=== PATIENT | female | born 1965 | race Two or more races ===

== ENCOUNTER 2023-02-19 11:04 | Emergency (ER) | payer MEDICAID ==
[~2023-02-19] VITALS: Ht 154.9 cm; Wt 79.4 kg
[2023-02-19 11:57] VITALS: BP 138/84; PULSE 74; RESP 18; O2SAT 98
[2023-02-19 12:14] LABS: Urine Bacteria NONE SEEN /hpf (None Seen); Urine Blood 3+ /uL (Negative); Urine Clarity HAZY (Clear); Urine Color PINK (Yellow); Urine Mucus FEW (None Seen); Urine Protein, UAD 1+ (Negative); Urine Specific Gravity 1.019 (1.001-1.035); Urine Urobilinogen Normal (Negative); Urine WBC 642 /hpf (0 - 5); Urine WBC Clumps PRESENT /hpf (None Seen); Urine pH 5.5 (5.0-8.0)
[2023-02-19] MEDS ORDERED: cefTRIAXone SOD 1,000 MG VL IM ONE (12:45)
[2023-02-19] MEDS ORDERED: PHENAZOPYRIDINE HCL 100 MG TAB PO ONE (12:45)
[2023-02-19] MEDS ORDERED: PHEN-922 PO (12:53)
[2023-02-19] MEDS ORDERED: BACDST PO (12:53)
== END 2023-02-19 13:10 | disposition home or self-care (01) ==
LOC: ER 11:04
DX: N39.0 Urinary tract infection, site not specified (principal)
CPT/HCPCS: 81001; 96372; 99283; J0696

== ENCOUNTER 2024-04-19 13:22 | Emergency (ER) | payer MEDICAID ==
[~2024-04-19] VITALS: Ht 144.8 cm; Wt 88.0 kg
[~2024-04-19 13:22] MED LIST: BACDST PO; PHEN-922 PO
[2024-04-19 14:09] VITALS: BP 120/59; PULSE 90; RESP 18; TEMP 98.1; O2SAT 96
[2024-04-19] MEDS ORDERED: ACET500T58 PO (14:57)
[2024-04-19] MEDS ORDERED: PROM1SOL4 PO (14:57)
[2024-04-19] MEDS ORDERED: PSEU120T18 PO (14:57)
[2024-04-19] MEDS ORDERED: BENZ100C97 PO (14:57)
--- NOTE | 2024-04-19 14:57 | ED.PDOC ---
SOB-HPI HPI Comments Old female with a history of high blood pressure presents with a chief complaint of URI symptoms for the last seven days. Currently reports a nonproductive cough, runny nose, and a frontal headache. Symptoms rated as moderate. Was seen at Dr. Murphy three days ago and was prescribed Motrin and Augmentin in his currently on day three. Chief Complaint: Flu like Time Seen by MD: 13:59 Primary Care Provider: JESSEE Jean notes: Nurses Notes, Medications, Allergies Information Source: Patient Mode of Arrival: Ambulatory Past Medical History PAST MEDICAL HISTORY: UTI'S Surgical History: Denies all surgeries DIE REPAIR MACHINIST History: No Pertinent DIE REPAIR MACHINIST History Family History Family History: Reviewed,noncontributory to illness Social History Smoker: Non-Smoker Alcohol: Denies ETOH Use Drugs: Denies Drug Use Lives In: Home All Other Systems: Reviewed and Negative (per hpi) Physical Exam General Appearance: No Apparent Distress, Normal HEENT: Normal ENT Inspection, Pharynx Normal, TMs Normal Neck: Full Range of Motion, Non-Tender, Normal, Normal Inspection Respiratory: Chest Non-Tender, Lungs Clear, No Accessory Muscle Use, No Respiratory Distress, Normal Breath Sounds Cardiovascular: No Edema, No JVD, No Murmur, No Gallop, Normal Peripheral Pulses, Regular Rate/Rhythm Breast Exam: Deferred Gastrointestinal: No Organomegaly, Non Tender, No Pulsatile Mass, Normal Bowel Sounds, Soft Genitalia: Deferred Pelvic: Deferred Rectal: Deferred Extremities: No calf tenderness, Normal capillary refill, Normal inspection, Normal range of motion, Non-tender, No pedal edema Musculoskeletal : Apperance: Normal Neurologic: Alert, hog cutter II-XII nml as Tested, No Motor Deficits, Normal Affect, Normal Mood, No Sensory Deficits Cerebellar Function: Normal Reflexes: Normal Skin: Dry, Normal Color, Warm Lymphatic: No Adenopathy Was a procedure done? Was a procedure done?: No Differential Dx Differential Diagnosis: Bronchitis X-Ray, Labs, Meds, VS Vital Signs Date Time Temp Pulse Resp B/P (MAP) Pulse Ox O2 Delivery O2 Flow Rate FiO2 04/19/24 14:09 90 18 96 Room Air 04/19/24 14:09 98.1 90 18 120/59 (79) 96 98.1 04/19/24 13:45 98.1 90 18 120/59 (79) 96 X-Ray, Labs, Meds, VS Comment The patient is overall well-appearing nontoxic on exam. On physical exam, respirations even and unlabored, clear to auscultation bilaterally. Oxygen stable on room air. Did not have any focal lung findings and therefore chest x-ray was not indicated during this exam Low suspicion of strep pharyngitis given physical exam findings and patient's presenting symptoms No signs of meningismus on exam Overall, the patient is well hydrated and nontoxic. Plan for symptomatic control for fever and pain as needed. The patient was able to tolerate p.o. intake in the ED. at this time, patient is safe for discharge home. The exam findings and plan discussed. We will discharge home with PCP follow up and strict return precautions. Discussed that cough can linger up to 6 weeks after viral URI Supportive care and return precautions discussed Counseled viral infection and explained that antibiotics would not be helpful in resolving the illness sooner. Recommended vitamin C, rest, handwashing, and symptomatic care. Expect 2-week course with possibly of cough lingering up to 6 weeks. Nonpharmacological remedies for fluids has been recommended as well Time of 1ST Reevaluation: 14:54 Reevaluation 1ST: Improved Patient Education/Counseling: Diagnosis, Treatment Family Education/Counseling: Diagnosis, Treatment Departure 1 Departure Time of Disposition: 14:55 Impression: Primary Impression: Acute bronchitis Qualified Codes: J20.9 - Acute bronchitis, unspecified Disposition: 01 HOME / SELF CARE / HOMELESS Condition: Stable e-Prescriptions Acetaminophen (Acetaminophen) 500 Mg Tab 500 MG PO Q6HP PRN for 10 Days, #40 TAB 0 Refills Prov: YG ROMERO METAL ROLLING MILL OPERATOR 04/19/24 Pseudoephedrine-Guaifenesin (Mucinex D) 1 Tab Tab 1 TAB PO BID for 10 Days, #20 TAB 0 Refills Prov: YG ROMERO METAL ROLLING MILL OPERATOR 04/19/24 Promethazine-Dm (Promethazine Dm 6.25-15 mg/5Ml) 1 Bárbara Bárbara 5 ML PO TID for 10 Days, #150 ML 0 Refills Prov: YG ROMERO METAL ROLLING MILL OPERATOR 04/19/24 Benzonatate (Benzonatate) 100 Mg Cap 1 CAP PO TID for 10 Days, #30 CAP 0 Refills Prov: YG ROMERO METAL ROLLING MILL OPERATOR 04/19/24 Critical Care Note Critical Care Time?: No Stability Stability form required: No Heart Score Heart Score: Heart Score Response (Comments) Value History N/A 0 EKG N/A 0 Age N/A 0 Risk Factors N/A 0 Troponin N/A 0 Total 0 YG ROMERO NP Apr 19, 2024 14:57
[2024-04-19] MEDS: methylPREDNISolone SOD SUCC 125 MG/2 ML VL IM ONE (15:08)
== END 2024-04-19 14:57 | disposition home or self-care (01) ==
LOC: ER 13:22
DX: J20.9 Acute bronchitis, unspecified (principal)
CPT/HCPCS: 96372; 99283; J2919

== ENCOUNTER 2024-06-14 10:51 | Emergency (ER) | payer MEDICAID ==
[~2024-06-14] VITALS: Ht 157.5 cm; Wt 82.2 kg
[~2024-06-14 10:51] MED LIST changes: +ACET500T58 PO; +BENZ100C97 PO; +PROM1SOL4 PO; +PSEU120T18 PO
[2024-06-14 11:54] VITALS: BP 126/74; PULSE 104; RESP 16; TEMP 98.5; O2SAT 96
--- NOTE | 2024-06-14 12:24 | ED.PDOC ---
Musculoskeletal HPI Comments This 58-year-old male presents with a chief complaint of atraumatic right inguinal pain and pain to the lateral thigh x2 weeks. Onset was sudden has been persistent since. Symptoms are aggravated with lying on the affected side in his unable to get adequate relief with [id number] medications. Pain rated as moderate Chief Complaint: Lower Extremity Time Seen by MD: 11:41 Primary Care Provider: unknown Reviewed Notes: Nurses Notes, Medications, Allergies Allergies: Coded Allergies: NO KNOWN ALLERGIES (Unverified , 02/19/23) Home Meds Active Scripts Promethazine-Dm (Promethazine Dm 6.25-15 mg/5Ml) 1 Bárbara Bárbara, 5 ML PO TID for 10 Days, #150 ML 0 Refills Prov:HEATHERDELONTE CELISO Delfina CAR SALES ASSOCIATE 06/14/24 Pseudoephedrine-Guaifenesin (Mucinex D) 1 Tab Tab, 1 TAB PO BID for 10 Days, #20 TAB 0 Refills Prov:HEATHERYG Delfina CAR SALES ASSOCIATE 06/14/24 Benzonatate (Benzonatate) 100 Mg Cap, 1 CAP PO TID for 10 Days, #30 CAP 0 Refills Prov:HEATHERYG CELIS CAR SALES ASSOCIATE 06/14/24 Ibuprofen Micronized (Ibuprofen) 800 Mg Tab, 800 MG PO Q8HP PRN for 10 Days, #30 TAB 0 Refills Prov:HEATHERYG CELIS CAR SALES ASSOCIATE 06/14/24 Methocarbamol (Methocarbamol) 500 Mg Tab, 500 MG PO Q8HP PRN for 7 Days, #21 TAB 0 Refills Prov:HEATHERYG Mathis CAR SALES ASSOCIATE 06/14/24 Acetaminophen (Acetaminophen) 500 Mg Tab, 500 MG PO Q6HP PRN for 10 Days, #40 TAB 0 Refills Prov:HEATHERYG Mathis CAR SALES ASSOCIATE 04/19/24 Pseudoephedrine-Guaifenesin (Mucinex D) 1 Tab Tab, 1 TAB PO BID for 10 Days, #20 TAB 0 Refills Prov:HEATHERDELONTE CELISO Delfina CAR SALES ASSOCIATE 04/19/24 Promethazine-Dm (Promethazine Dm 6.25-15 mg/5Ml) 1 Bárbara Bárbara, 5 ML PO TID for 10 Days, #150 ML 0 Refills Prov:YG ROMERO Delfina CAR SALES ASSOCIATE 04/19/24 Benzonatate (Benzonatate) 100 Mg Cap, 1 CAP PO TID for 10 Days, #30 CAP 0 Refills Prov:YG ROMERO DEVYN 04/19/24 Phenazopyridine HCl (Phenazopyridine Hydrochlo) 200 Mg Tab, 200 MG PO TID, #6 TAB Prov:JONES ROCKWELL 02/19/23 Sulfamethoxazole W/Trimethopri (Bactrim Ds Tablet) 1 Tab Tb, 1 TAB PO BID for 10 Days, #20 TAB Prov:JONES ROCKWELL 02/19/23 Information Source: Patient Mode of Arrival: Ambulatory Past Medical History PAST MEDICAL HISTORY: UTI'S Surgical History: Denies all surgeries WELDING INSTRUCTOR History: No Pertinent WELDING INSTRUCTOR History Family History Family History: Reviewed,noncontributory to illness Social History Smoker: Non-Smoker Alcohol: Denies ETOH Use Drugs: Denies Drug Use Lives In: Home All Other Systems: Reviewed and Negative (per hpi) Physical Exam General Appearance: No Apparent Distress, Normal HEENT: Normal ENT Inspection, Pharynx Normal, TMs Normal Neck: Full Range of Motion, Non-Tender, Normal, Normal Inspection Respiratory: Chest Non-Tender, Lungs Clear, No Accessory Muscle Use, No Respiratory Distress, Normal Breath Sounds Cardiovascular: No Edema, No JVD, No Murmur, No Gallop, Normal Peripheral Pulses, Regular Rate/Rhythm Breast Exam: Deferred Gastrointestinal: No Organomegaly, Non Tender, No Pulsatile Mass, Normal Bowel Sounds, Soft Genitalia: Deferred Pelvic: Deferred Rectal: Deferred Extremities: No calf tenderness, Normal capillary refill, Normal inspection, Normal range of motion, Non-tender, No pedal edema Musculoskeletal : Apperance: Normal Neurologic: Alert, curtain worker II-XII nml as Tested, No Motor Deficits, Normal Affect, Normal Mood, No Sensory Deficits Cerebellar Function: Normal Reflexes: Normal Skin: Dry, Normal Color, Warm Lymphatic: No Adenopathy Was a procedure done? Was a procedure done?: No Differential Diagnosis EXT Differential Diagnosis: Sprain X-Ray, Labs, Meds, VS Vital Signs Date Time Temp Pulse Resp B/P (MAP) Pulse Ox O2 Delivery O2 Flow Rate FiO2 06/14/24 11:54 104 16 96 Room Air 06/14/24 11:54 98.5 101 16 126/74 (91) 96 98.5 06/14/24 11:26 98.5 104 16 126/74 (91) 96 Lab Test 06/14/24 12:05 Range/Units Urine Color Yellow Yellow Urine Clarity Clear Clear Urine pH 5.5 5.0-9.0 Urine Specific [place] 1.022 1.001-1.035 Urine Protein Negative Negative Urine Ketones Negative Negative Urine Blood 1+ H Negative /uL Urine Nitrite Negative Negative Urine Bilirubin Negative Negative Urine Urobilinogen Normal Negative mg/dL Urine Leukocyte Esterase Negative Negative /uL Urine RBC 1 0 - 4 /hpf Urine Microscopic WBC 1 0-5 /HPF Urine Squamous Epithelial Cells Few <5 /hpf Urine Bacteria None seen None Seen /hpf Urine Mucus Few None Seen Urine Glucose Normal Normal mg/dL Current Medications Medications (Trade) Dose Ordered Sig/[place] Route Start Time Stop Time Status Last Admin Ketorolac Tromethamine (Toradol Injection) 60 mg ONCE ONCE IM 06/14/24 13:00 06/14/24 13:01 DC 06/14/24 12:59 X-Ray, Labs, Meds, VS Comment After ROS physical examination no red flags. Findings consistent with musculoskeletal injury. Medications were prescribed for symptomatic treatment Advised to stretch as tolerated. Warm compresses as needed Patient is stable for discharge at this time. External notes reviewed. Test results and diagnostic imaging interpreted. All diagnostic findings, discharge care, education and instructions provided Follow-up with PCP in 2 to 3 days Patient verbalized understanding and agreed to treatment plan Vital signs stable, afebrile, no acute distress noted Patient ambulatory with strong steady gait Advised to return precautions for any new or worsening symptoms, return to ER immediately for re-evaluation Patient is aware that the purpose of this visit was for an acute medical emergency requiring emergent stabilization. Chronic conditions, including malignancies have not been ruled out. Patient is instructed to follow up with PCP as directed and discharge instructions for continued care and workup. If unable to arrange follow-up, patient is to return to the emergency department for reassessment. Patient (parent or legal guardian if applicable) was given verbal and written discharge instructions and acknowledges understanding. Time of 1ST Reevaluation: 12:45 Reevaluation 1ST: Improved Patient Education/Counseling: Diagnosis, Treatment Family Education/Counseling: Diagnosis, Treatment Departure 1 Departure Time of Disposition: 12:56 Impression: Primary Impression: IT band syndrome Qualified Codes: M76.31 - Iliotibial band syndrome, right leg Additional Impressions: Rt inguinal pain Cough Qualified Codes: R05.1 - Acute cough Disposition: 01 HOME / SELF CARE / HOMELESS Condition: Fair e-Prescriptions Promethazine-Dm (Promethazine Dm 6.25-15 mg/5Ml) 1 Bárbara Bárbara 5 ML PO TID for 10 Days, #150 ML 0 Refills Prov: YG ROMERO NP 06/14/24 Pseudoephedrine-Guaifenesin (Mucinex D) 1 Tab Tab 1 TAB PO BID for 10 Days, #20 TAB 0 Refills Prov: YG ROMERO NP 06/14/24 Benzonatate (Benzonatate) 100 Mg Cap 1 CAP PO TID for 10 Days, #30 CAP 0 Refills Prov: YG ROMERO NP 06/14/24 Ibuprofen Micronized (Ibuprofen) 800 Mg Tab 800 MG PO Q8HP PRN for 10 Days, #30 TAB 0 Refills Prov: YG ROMERO NP 06/14/24 Methocarbamol (Methocarbamol) 500 Mg Tab 500 MG PO Q8HP PRN for 7 Days, #21 TAB 0 Refills Prov: YG ROMERO NP 06/14/24 Critical Care Note Critical Care Time?: No Stability Stability form required: No Heart Score Heart Score: Heart Score Response (Comments) Value History N/A 0 EKG N/A 0 Age N/A 0 Risk Factors N/A 0 Troponin N/A 0 Total 0 YG ROMERO NP Jun 14, 2024 12:24
[2024-06-14 12:25] LABS: Urine Bacteria None Seen /hpf (None Seen)
[2024-06-14 12:45] LABS: Urine Blood 1+ /uL (Negative); Urine Clarity Clear (Clear); Urine Color Yellow (Yellow); Urine Mucus FEW (None Seen); Urine Protein, UAD Negative (Negative); Urine Specific Gravity 1.022 (1.001-1.035); Urine Squamous Epithelial Cell FEW /hpf (<5); Urine Urobilinogen Normal (Negative); Urine WBC 1 /HPF (0-5); Urine pH 5.5 (5.0-9.0)
[2024-06-14] MEDS ORDERED: METH-1181 PO (12:58)
[2024-06-14] MEDS ORDERED: IBUP-1455 PO (12:58)
[2024-06-14] MEDS: KETOROLAC TROMETH 60MG/2ML VIAL IM ONE (12:59)
== END 2024-06-14 13:33 | disposition home or self-care (01) ==
LOC: ER 10:51
DX: M76.31 Iliotibial band syndrome, right leg (principal); R10.31 Right lower quadrant pain; R05.9 Cough, unspecified; Z79.899 Other long term (current) drug therapy
CPT/HCPCS: 81001; 96372; 99283; J1885

== ENCOUNTER 2025-03-26 09:31 | Emergency (ER) | payer MEDICAID ==
[~2025-03-26] VITALS: Ht 157.5 cm; Wt 81.3 kg
[~2025-03-26 09:31] MED LIST changes: +IBUP-1455 PO; +METH-1181 PO
--- NOTE | 2025-03-26 10:46 | ED.PDOC ---
Musculoskeletal HPI Comments 59 year-old female presents to the ED with a chief complaint of L leg pain for X1 week. Patient reports doing normal stretching and exercising when symptoms came onset suddenly. Patient reports heightened pain with ambulation. Patient has no further complaints at this time and otherwise denies symptoms of weakness, dizziness, numbness/ tingling, fever, or trauma to the L leg. Chief Complaint: Lower Extremity Time Seen by MD: 10:16 Primary Care Provider: unknown Reviewed Notes: Nurses Notes, Medications, Allergies Allergies: Coded Allergies: NO KNOWN ALLERGIES (Unverified , 02/19/23) Home Meds Active Scripts Promethazine-Dm (Promethazine Dm 6.25-15 mg/5Ml) 1 Bárbara Bárbara, 5 ML PO TID for 10 Days, #150 ML 0 Refills Prov:HEATHERDELONTE CELISO Delfina MANUFACTURING TEACHER 06/14/24 Pseudoephedrine-Guaifenesin (Mucinex D) 1 Tab Tab, 1 TAB PO BID for 10 Days, #20 TAB 0 Refills Prov:YG ROMERO Delfina MANUFACTURING TEACHER 06/14/24 Benzonatate (Benzonatate) 100 Mg Cap, 1 CAP PO TID for 10 Days, #30 CAP 0 Refills Prov:HEATHERDELONTEO Delfina MANUFACTURING TEACHER 06/14/24 Ibuprofen Micronized (Ibuprofen) 800 Mg Tab, 800 MG PO Q8HP PRN for 10 Days, #30 TAB 0 Refills Prov:HEATHERYG CELIS MANUFACTURING TEACHER 06/14/24 Methocarbamol (Methocarbamol) 500 Mg Tab, 500 MG PO Q8HP PRN for 7 Days, #21 TAB 0 Refills Prov:HEATHERYG Delfina MANUFACTURING TEACHER 06/14/24 Acetaminophen (Acetaminophen) 500 Mg Tab, 500 MG PO Q6HP PRN for 10 Days, #40 TAB 0 Refills Prov:HEATHERYG Delfina MANUFACTURING TEACHER 04/19/24 Pseudoephedrine-Guaifenesin (Mucinex D) 1 Tab Tab, 1 TAB PO BID for 10 Days, #20 TAB 0 Refills Prov:HEATHERYG Delfina MANUFACTURING TEACHER 04/19/24 Promethazine-Dm (Promethazine Dm 6.25-15 mg/5Ml) 1 Bárbara Bárbara, 5 ML PO TID for 10 Days, #150 ML 0 Refills Prov:YG ROMERO Delfina MANUFACTURING TEACHER 04/19/24 Benzonatate (Benzonatate) 100 Mg Cap, 1 CAP PO TID for 10 Days, #30 CAP 0 Refills Prov:HEATHERYGAi Mathis NP 04/19/24 Phenazopyridine HCl (Phenazopyridine Hydrochlo) 200 Mg Tab, 200 MG PO TID, #6 TAB Prov:JONES ROCKWELL 02/19/23 Sulfamethoxazole W/Trimethopri (Bactrim Ds Tablet) 1 Tab Tb, 1 TAB PO BID for 10 Days, #20 TAB Prov:JONES ROCKWELL 02/19/23 Information Source: Patient Mode of Arrival: Ambulatory Location: Left Extremity Location: Calf, Leg Timing: Weeks Severity: Moderate Pain: Moderate Onset of Symptoms: Spontaneous Symptoms: Pain Associated signs and symptoms: Leg pain Past Medical History PAST MEDICAL HISTORY: UTI'S Surgical History: Denies all surgeries COMPOSITION SIDING WORKER History: No Pertinent COMPOSITION SIDING WORKER History Family History Family History: Reviewed,noncontributory to illness Social History Smoker: Non-Smoker Alcohol: Denies ETOH Use Drugs: Denies Drug Use Lives In: Home Constitutional: denies: chills, diaphoresis, fatigue, fever, malaise, sweats, weakness, others EENTM: denies: blurred vision, double vision, ear bleeding, ear discharge, ear drainage, ear pain, ear ringing, eye pain, eye redness, hearing loss, mouth pain, mouth swelling, nasal discharge, nose bleeding, nose congestion, nose pain, photophobia, tearing, throat pain, throat swelling, voice changes, others Respiratory: denies: cough, hemoptysis, orthopnea, SOB at rest, shortness of breath, SOB with excertion, stridor, wheezing, others Cardiovascular: denies: chest pain, dizzy spells, diaphoresis, Dyspnea on exertion, edema, irregular heart beat, left arm pain, lightheadedness, palpitations, PND, syncope, others Gastrointestinal: denies: abdomen distended, abdominal pain, blood streaked bowels, constipated, diarrhea, dysphagia, difficulty swallowing, hematemesis, melena, nausea, poor appetite, poor fluid intake, rectal bleeding, rectal pain, vomiting, others Genitourinary: denies: abnormal vagina bleeding, burning, dyspareunia, dysuria, flank pain, frequency, hematuria, incontinence, pain, , vagina discharge, urgency, others Neurological: denies: dizziness, fainting, headache, left sided numbness, left sided weakness, numbness, paresthesia, pre-existing deficit, right sided numbness, right sided weakness, seizure, speech problems, tingling, tremors, weakness, others Musculoskeletal: denies: back pain, gout, joint pain, joint swelling, muscle pain, muscle stiffness, neck pain, others Integumetry: denies: bruises, change in color, change in hair/nails, dryness, laceration, lesions, lumps, rash, wounds, others Allergic/Immunocompromised: denies: Difficulty Healing, Frequent Infections, Hives, Itching, others Hematologic/Lymphatic: denies: anemia, blood clots, easy bleeding, easy bruising, swollen glands, others Endocrine: denies: excessive hunger, excessive sweating, excessive thirst, excessive urination, flushing, intolerance to cold, intolerance to heat, unexplained weight gain, unexplained weight loss, others Psychiatric: denies: anxiety, bipolar disorder, depression, hopeless, panic disorder, schizophrenia, sleepless, suicidal, others All Other Systems: Reviewed and Negative Physical Exam General Appearance: Mild Distress HEENT: Normal ENT Inspection, PERRL/EOMI Neck: Full Range of Motion, Non-Tender, Normal, Normal Inspection Respiratory: Chest Non-Tender, Lungs Clear, No Accessory Muscle Use, No Respiratory Distress, Normal Breath Sounds Cardiovascular: No Edema, No JVD, No Murmur, No Gallop, Normal Peripheral Pulses, Regular Rate/Rhythm Breast Exam: Deferred Gastrointestinal: No Organomegaly, Non Tender, No Pulsatile Mass, Normal Bowel Sounds, Soft Genitalia: Deferred Pelvic: Deferred Rectal: Deferred Extremities: No calf tenderness, Normal capillary refill, Normal inspection, Normal range of motion, No pedal edema, Tender, Other (Left calf tenderness no swelling no induration no redness normal temperature the pain radiating up to the hip straight leg elevation negative) Neurologic: Alert, emd teacher II-XII nml as Tested, No Motor Deficits, Normal Affect, Normal Mood, No Sensory Deficits Cerebellar Function: Normal Reflexes: Normal Skin: Dry, Normal Color, Warm Peripheral Pulses: 1+ carotid (R), 1+ carotid (L) Lymphatic: No Adenopathy Was a procedure done? Was a procedure done?: No Differential Diagnosis EXT Differential Diagnosis: Deep Vein Thrombosis, Sprain, Contusion, Strain, Arth ritis X-Ray, Labs, Meds, VS Vital Signs Date Time Temp Pulse Resp B/P (MAP) Pulse Ox O2 Delivery O2 Flow Rate FiO2 03/26/25 09:35 97.9 89 18 114/72 96 97.9 X-Ray, Labs, Meds, VS Comment Course in the [employer] patient came in complaining of leg pain after stretching Ultrasound is negative for DVT but she has a Ortega cyst that is 3 cm Patient will be discharged home to follow up with your PCP Time of 1ST Reevaluation: 11:28 Reevaluation 1ST: Unchanged Time of 2ND Reevaluation: 11:52 Reevaluation 2ND: Improved Consultation: PCP Patient Education/Counseling: Diagnosis, Treatment, Prognosis, Need For Follow Up Family Education/Counseling: Diagnosis, Treatment, Prognosis, Need For Follow Up, No Family Present Departure 1 Departure Time of Disposition: 11:52 Impression: Primary Impression: Muscle strain of left lower extremity Qualified Codes: S86.912A - Strain of unspecified muscle(s) and tendon(s) at lower leg level, left leg, initial encounter Additional Impression: Ortega's cyst of knee Ruled Out: DVT (deep venous thrombosis) Disposition: HOME / SELF CARE / HOMELESS Condition: Fair Additional Instructions: Local heat and follow up with your PCP e-Prescriptions Naproxen (Naproxen) 375 Mg Tab 375 MG PO TID for 10 Days, #30 TAB Prov: TAYLOR KERNS MD 03/26/25 Cyclobenzaprine Hcl (Cyclobenzaprine Hcl) 10 Mg Tab 10 MG PO TID for 10 Days, #30 TAB Prov: TAYLOR KERNS MD 03/26/25 Discharged With: Self Critical Care Note Critical Care Time?: No Stability Stability form required: No Heart Score Heart Score: Heart Score Response (Comments) Value History N/A 0 EKG N/A 0 Age 45-64 1 Risk Factors No known risk factors 0 Troponin N/A 0 Total 1 I personally scribed for TAYLOR KERNS MD ([email or web address]) on 03/26/25 at 10:46. Electronically submitted by Gosia CrockerScreenmailer). TAYLOR KERNS MD Mar 26, 2025 10:46
--- NOTE | 2025-03-26 11:24 | DVH ---
Left lower extremity venous duplex CLINICAL HISTORY: dvt COMPARISON: None Findings and Technique: Duplex doppler evaluation of the deep venous system of the left lower extremity from the common femoral vein to the popliteal vein including color doppler and spectral/pulsed waveform analysis was performed. The common femoral vein demonstrates appropriate compressibility and waveform variability. There is compressibility/patency of the great saphenous vein at the proximal thigh. The femoral vein demonstrates appropriate compressibility and waveform variability. The deep femoral vein demonstrates appropriate compressibility and waveform variability. The popliteal vein demonstrates appropriate compressibility and waveform variability. 2.8 x 0.8 x 3.0 cm left vasquez cyst. IMPRESSION: 1. No left femoropopliteal venous thrombosis. 2. If clinical concern/symptoms persist or worsen, short-interval follow-up study is suggested. 3. A 3 cm left vasquez cyst.
[2025-03-26] MEDS ORDERED: NAPR-957 PO (11:54)
[2025-03-26] MEDS ORDERED: CYCL-839 PO (11:54)
[2025-03-26 12:24] VITALS: BP 111/71; PULSE 83; RESP 16; TEMP 98.7; O2SAT 97
== END 2025-03-26 12:53 | disposition home or self-care (01) ==
LOC: ER 09:31
DX: S86.912A Strain of unspecified muscle(s) and tendon(s) at lower leg level, left leg, initial encounter (principal); M71.22 Synovial cyst of popliteal space [Baker], left knee; Z79.899 Other long term (current) drug therapy; Z87.440 Personal history of urinary (tract) infections; X50.9XXA Other and unspecified overexertion or strenuous movements or postures, initial encounter; Y93.89 Activity, other specified; Y92.89 Other specified places as the place of occurrence of the external cause; Y99.8 Other external cause status
CPT/HCPCS: 93971